=== PATIENT | female | born 1965 | race Caucasian/White ===

== ENCOUNTER 2019-02-12 15:49 | Emergency (ER) | payer BC ==
[~2019-02-12] VITALS: Ht 162.6 cm; Wt 86.2 kg
[2019-02-12 15:55] VITALS: BP_SYST 126
--- NOTE | 2019-02-12 15:55 | NUR ---
Patient to ER bed 3 to gown for evaluation. Side rails up. Assumed care.
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
--- NOTE | 2019-02-12 16:30 | NUR ---
ER at bedside examining patient.
[2019-02-12] MEDS ORDERED: KETOROLAC TROMETHAMINE 60 MG/2 ML VIAL IM ONE (17:00)
--- NOTE | 2019-02-12 17:23 | NUR ---
Patient taken to XR for exam. Patient medicated for pain prior to exams.
[2019-02-12 18:19] VITALS: BP_SYST 122
--- NOTE | 2019-02-12 18:19 | NUR ---
Patient given written and verbal discharge instructions and verbalizes understanding. ER MD discussed with patient the results and treatment provided. Patient in stable condition. ID arm band removed. Rx of Naprosyn given. Patient educated on pain management and to follow up with PMD. Pain Scale 5/10, tolerable per patient. Opportunity for questions provided and answered. Medication side effect fact sheet provided.
== END 2019-02-12 18:19 | disposition home or self-care (01) ==
LOC: SED 15:49
DX: S13.4XXA Sprain of ligaments of cervical spine, initial encounter (principal); F41.9 Anxiety disorder, unspecified; V49.50XA Passenger injured in collision with unspecified motor vehicles in traffic accident, initial encounter; Y93.89 Activity, other specified; Y92.89 Other specified places as the place of occurrence of the external cause; Y99.8 Other external cause status
CPT/HCPCS: 72040; 96372; 99283; J1885